=== PATIENT | female | born 1995 | race Two or more races ===

== ENCOUNTER 2023-09-22 15:14 | Emergency (ER) | payer BC, OTHER ==
[~2023-09-22] VITALS: Ht 162.6 cm; Wt 94.4 kg
[2023-09-22 16:39] LABS: Basophils # (auto) 0 10 ^3/uL (0-0.2); Basophils % (auto) 0.3 % (0.0-2.0); Eosinophils # (auto) 0 10 ^3/uL (0-0.8); Eosinophils % (auto) 0.6 % (0.0-7.0); Hematocrit 40.1 % (36.0-46.0); Lymphocytes # (auto) 1.2 10 ^3/uL (0.4-5.4); Lymphocytes % (auto) 15.9 % (10.0-50.0); Mean Corpuscular Hemoglobin 29.5 pg (28.0-32.0); Mean Corpuscular Hgb Conc. 34.8 g/dL (32.0-36.0); Mean Corpuscular Volume 84.8 fL (80.0-100.0); Monocytes # (auto) 0.7 10 ^3/uL (0-1.3); Monocytes % (auto) 8.9 % (0.0-12.0); Neutrophils # (auto) 5.7 10 ^3/uL (1.6-8.6); Neutrophils % (auto) 74.3 % (37.0-80.0); Red Blood Cells 4.73 10^6/uL (4.0-5.20); Red Cell Distribution Width 14.1 % (11.8-14.3); White Blood Cell 7.6 10^3/uL (4.4-10.8)
[2023-09-22 16:40] VITALS: BP 145/69; PULSE 70; RESP 18; TEMP 97.7; O2SAT 100
[2023-09-22] MEDS: HYDROcodone-ACET 10/325MG TAB PO ONE (16:48)
[2023-09-22 17:01] LABS: Chloride 107 mmol/L (98-107); Potassium 3.9 mmol/L (3.5-5.1); Sodium 138 mmol/L (136-145)
[2023-09-22 17:02] LABS: Anion Gap 9 (5-15); Carbon Dioxide 22 mmol/L (20-30)
[2023-09-22 17:03] LABS: Calcium 9.5 mg/dL (8.7-10.4)
[2023-09-22 17:08] LABS: BUN/Creatinine Ratio 17.6 (10.0-20.0); Blood Urea Nitrogen 13 mg/dL (9-23); Glucose 84 mg/dL (74-106); Lipase 36 U/L (12-53)
[2023-09-22 18:13] LABS: Urine Bacteria MOD /hpf (None Seen); Urine Blood Negative /uL (Negative); Urine Clarity Turbid (Clear); Urine Color Light-Yellow (Yellow); Urine Mucus FEW (None Seen); Urine Protein, UAD Negative (Negative); Urine Specific Gravity 1.015 (1.001-1.035); Urine Urobilinogen Normal (Negative); Urine WBC 2 /hpf (0 - 5); Urine pH 5.5 (5.0-9.0)
[2023-09-22 18:17] LABS: COVID19 ANTIGEN SOFIA FIA POSITIVE (NEGATIVE)
[2023-09-22] MEDS ORDERED: ACET500T58 PO (18:35)
[2023-09-22] MEDS ORDERED: NIRM1TAB7 PO (18:35)
[2023-09-22] MEDS ORDERED: ZOFR4T PO (18:35)
[2023-09-22] MEDS ORDERED: DICY10CA PO (18:35)
== END 2023-09-22 19:04 | disposition home or self-care (01) ==
LOC: ER 15:14
DX: U07.1 COVID-19 (principal)
CPT/HCPCS: 36415; 80048; 81001; 83690; 85025; 87426